=== PATIENT | female | born 2000 | race Caucasian/White ===

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

== ENCOUNTER → 2019-02-28 | Outpatient (CLI) | payer MEDICAID | END | disposition home or self-care (01) | LOC: PREOP 05:50 | PROVIDERS: ATTEND Dentist General Practice | DX: Z01.818 Encounter for other preprocedural examination (principal) ==

== ENCOUNTER 2019-06-13 05:38 | Outpatient (CLI) | payer MEDICAID ==
[~2019-06-13] VITALS: Ht 157 cm; Wt 59.0 kg
== END 2019-06-13 12:58 | disposition home or self-care (01) ==
LOC: PREOP 05:38
PROVIDERS: ATTEND Dentist General Practice
DX: Z01.818 Encounter for other preprocedural examination (principal)

== ENCOUNTER 2019-06-20 10:24 | Day surgery (SDC) | payer MEDICAID ==
--- NOTE | 2019-06-13 12:32 | HISTORY AND PHYSICAL ---
DATE OF SERVICE: CHIEF COMPLAINT: To have teeth surgery by Dr. Do. ALLERGIC TO MEDICATIONS: Denies. MEDICATIONS NOW ON: Denies. PAST SURGICAL HISTORY: Denies. FAMILY HISTORY: Denies asthma, TB, diabetes; grandpa colon cancer and family has hypertension. REVIEW OF SYSTEMS: HEAD: Denies headache, dizziness, fainting. EYES, EARS, NOSE AND THROAT: Denies diplopia, tinnitus, sore throat. CARDIOVASCULAR: Denies heart murmur, chest pain, shortness of breath. LUNGS: Denies asthma, TB, coughing, congestion, wheezing. GASTROINTESTINAL: Appetite okay. Denies blood in stools, diarrhea or constipation. GENITOURINARY: Denies blood, pain or frequency. Last menstrual period, thinks a week ago. PHYSICAL EXAMINATION: GENERAL: The patient is a white female, well nourished, well developed, in no acute respiratory distress at rest. EARS: Noninflamed. EYES: No conjunctivitis or icterus. THROAT: Noninflamed. NECK: Thyroid not enlarged. No abnormal cervical lymphadenopathy noted. HEART: Regular rate and rhythm. LUNGS: Clear to auscultation. ABDOMEN: Soft. Liver and spleen nonpalpable. ASSESSMENT AND PLAN: The patient is okay to have surgery. Job ID: [id number] DocumentID: [id number] Dictated Date: 06/13/2019 11:16:43 Community Service Aide Date: 06/13/2019 11:21:33 Dictated By: NATASHA WATSON DO
[2019-06-20] VITALS (8 sets, daily range): BP systolic 103–111; BP diastolic 61–75
[~2019-06-20] VITALS: Ht 157 cm; Wt 59.0 kg
[2019-06-20] MEDS: LACTATED RINGERS 1,000 ML IV PRN ×2 (11:39→15:10)
[2019-06-20] MEDS ORDERED: ONDANSETRON 4 MG/2 ML (SDV) Z0FRAN ONE (12:15)
[2019-06-20] MEDS ORDERED: SEVOFLURANE (ULTANE) 15 ML INHAL SOLN ONE ×2 (12:15→14:34)
[2019-06-20] MEDS ORDERED: MIDAZOLAM 2 MG/2 ML (VERSED) VIAL ONE (12:15)
[2019-06-20] MEDS ORDERED: ROCURONIUM 10 MG/ML 5 ML SYRINGE IV ONE (12:15)
[2019-06-20] MEDS ORDERED: GLYCOPYRROLATE 0.2 MG/ML (ROBINUL) 2 ML VIAL ONE (12:15)
[2019-06-20] MEDS ORDERED: NEOSTIGMINE 3 MG/3 ML VIAL ONE (12:15)
[2019-06-20] MEDS ORDERED: proPOfol 200 MG/20 ML (DIPRIVAN) VIAL IV ONE (12:15)
[2019-06-20] MEDS ORDERED: DEXAMETHASONE 10 MG/ML (DECADRON) 1 ML VIAL ONE (12:15)
[2019-06-20] MEDS ORDERED: LIDOCAINE PF 2% 5 ML (XYLOCAINE) VIAL ONE (12:15)
[2019-06-20] MEDS ORDERED: fentaNYL INJECTION 100 MCG/2 ML AMP ONE (12:15)
[2019-06-20] MEDS ORDERED: PHENYLEPHRINE 0.25% NASAL SPR (NEO-SYNEPHRINE) 15 ML NS ONE ×2 (12:36→12:45)
[2019-06-20] MEDS ORDERED: morphine INJ 10 MG/ML 1ML (SYR OR VIAL) IVP ONE (15:00)
[2019-06-20] MEDS ORDERED: ONDANSETRON 4 MG/2 ML (SDV) Z0FRAN IVP PRN (15:00)
[2019-06-20] MEDS ORDERED: MEPERIDINE (DEMEROL) INJ 50 MG/ML IVP ONE (15:00)
--- NOTE | 2019-06-20 15:10 | Anesthesia-General Post-Op ---
General Patient Condition Mental Status/LOC: Same as Preop Cardiovascular: Satisfactory Nausea/Vomiting: Absent Respiratory: Satisfactory Pain: Controlled Complications: Absent Post Op Complications Complications None Follow Up Care/Instructions Patient Instructions None needed. Anesthesia/Patient Condition Patient Condition Patient is doing well, no complaints, stable vital signs, no apparent adverse anesthesia problems. No complications reported per nursing. DAVID ALICEA CRNA Jun 20, 2019 15:10
--- NOTE | 2019-06-20 15:15 | NUR ---
TO AMB SURG FROM PAR PER CART. DROWSY, BLOODY NASAL DRAINAGE FROM LEFT NARES. NO BLEEDING FROM MOUTH. AWAKENS ON ARRIVAL TO ROOM AND BEGINS FLAILING IN BED. PADDED RAILS UP X2. RE-ORIENTED PT TO PLACE AND SITUATION. FAMILY MEMBER AT BEDSIDE. QUIETS SOME, BUT BEGINS COUGHING AND COUGHS UP SMALL AMOUNT OF DARK BLOOD AND THEN SMALL EMESIS OF BROWN LIQUID. HAS BEEN INCONTINENT OF URINE TO BED. LINENS AND GOWN CHANGED. PT CALMER NOW.
--- NOTE | 2019-06-20 15:45 | NUR ---
OCCASIONALLY DROWSY. NO FURTHER EMESIS. NO BLEEDING FROM MOUTH OR NOSE.
--- NOTE | 2019-06-20 16:15 | NUR ---
PT AND FAMILY REQUESTING DISMISSAL. NO CHANGE IN ASSESSMENTS. TAKING SMALL AMOUNTS OF PO FLUIDS.
--- NOTE | 2019-06-21 19:16 | OPERATIVE REPORT ---
DATE OF SERVICE: 06/20/2019 PREOPERATIVE DIAGNOSIS: Dental caries. POSTOPERATIVE DIAGNOSIS: Dental caries. OPERATION PERFORMED: Repair of numerous carious teeth utilizing endodontic therapy and composite resin placement. DESCRIPTION OF PROCEDURE: The patient was treated on an outpatient basis and following suitable premedication, taken to the operating room and placed in the supine position upon the table. Anesthesia was induced and nasotracheal intubation accomplished and general anesthesia administered. A throat pack consisting of one wet 4 x 4 gauze sponge was placed in the oropharynx and maintained in place throughout the procedure. Mouth opening was maintained at all times with simple digital pressure. No mechanical retractors of any kind were utilized. Caries was removed from teeth numbers 5 through 12, 21, 23 through 29. Root canal was performed on tooth #25 and a post-cemented in place with pins as well utilizing TheraCem cement. Composite resin was then used to build the tooth over this remains of stump root. The patient tolerated this brief procedure quite nicely and following a thorough debridement of the oral cavity with a copious flow of water, adequate suction and compressed air, the throat pack was removed. The patient was extubated and taken to recovery in quite satisfactory condition. Job ID: [id number] DocumentID: [id number] Dictated Date: 06/21/2019 09:00:43 Commercial Producer Date: 06/21/2019 13:26:48 Dictated By: LANCE CHANG DDS
== END 2019-06-20 16:28 | disposition home or self-care (01) ==
LOC: SDC 10:24
PROVIDERS: ATTEND Dentist General Practice
DX: K02.9 Dental caries, unspecified (principal); Z90.89 Acquired absence of other organs
CPT/HCPCS: 84703; 87081

== ENCOUNTER 2020-09-06 05:38 | Outpatient (RCR) | payer MEDICAID | END 2020-09-12 09:01 | disposition home or self-care (01) | LOC: PREOP 05:38 → EDSTATUS 13:00 → PREOP 09-12 09:01 | PROVIDERS: ATTEND Dentist General Practice | DX: Z01.818 Encounter for other preprocedural examination (principal) ==

== ENCOUNTER 2020-09-13 10:30 | Day surgery (SDC) | payer MEDICAID ==
--- NOTE | 2020-09-05 11:28 | HISTORY AND PHYSICAL ---
DATE OF SERVICE: DATE OF ADMISSION: . CHIEF COMPLAINT: To have outpatient surgery by Dr. Do, history by patient and family. ALLERGIC TO MEDICATIONS: Denies. PAST SURGICAL HISTORY: Teeth. CURRENT MEDICATIONS: Denies. FAMILY HISTORY: Denies asthma, TB, diabetes, heart disease, lung disease, and cancer. REVIEW OF SYSTEMS: HEAD: Denies headache, dizziness, fainting. EYES, EARS, NOSE AND THROAT: Denies diplopia, tinnitus, sore throat. HEART: Denies heart murmur, chest pain, shortness of breath. LUNGS: Denies asthma, TB, coughing, congestion, and smoking. GASTROINTESTINAL: Appetite good. Denies blood in stools, diarrhea, constipation, nausea, vomiting. GENITOURINARY: Denies blood, pain or frequency. Last menstrual period was August 10, 2020. PHYSICAL EXAMINATION: GENERAL: The patient is a white female, well nourished, well developed, in no acute respiratory distress at rest. EARS: No discharge noted. EYES: No conjunctivitis or icterus. THROAT: Noninflamed. NECK: Thyroid not enlarged. No abnormal cervical lymphadenopathy noted. HEART: Regular rate and rhythm. LUNGS: Clear to auscultation. ABDOMEN: Soft. Liver and spleen nonpalpable. ASSESSMENT AND PLAN: The patient is okay to have surgery. Job ID: [id number] DocumentID: [id number] Dictated Date: 09/05/2020 11:15:42 Chemical Research Worker Date: 09/05/2020 11:27:27 Dictated By: NATASHA WATSON DO
[2020-09-13] VITALS (8 sets, daily range): BP systolic 98–117; BP diastolic 59–73
[~2020-09-13] VITALS: Ht 162.6 cm; Wt 68.0 kg
[2020-09-13] MEDS ORDERED: LACTATED RINGERS 1,000 ML IV PRN (10:45)
[2020-09-13] MEDS ORDERED: PHENYLEPHRINE 0.25% NASAL SPR (NEO-SYNEPHRINE) 15 ML NS ONE (10:45)
[2020-09-13] MEDS ORDERED: fentaNYL INJ 100 MCG/2 ML AMP ONE (11:41)
[2020-09-13] MEDS ORDERED: MIDAZOLAM 2 MG/2 ML (VERSED) VIAL ONE (11:45)
[2020-09-13] MEDS ORDERED: LIDOCAINE PF 2% 5 ML (XYLOCAINE) VIAL ONE (11:50)
[2020-09-13] MEDS ORDERED: proPOfol 200 MG/20 ML (DIPRIVAN) VIAL IV ONE (11:50)
[2020-09-13] MEDS ORDERED: ROCURONIUM 10 MG/ML 5 ML SYRINGE IV ONE (11:50)
[2020-09-13] MEDS ORDERED: SEVOFLURANE (ULTANE) 15 ML INHAL SOLN ONE (14:37)
[2020-09-13] MEDS ORDERED: ONDANSETRON 4 MG/2 ML (SDV) Z0FRAN ONE ×2 (14:40→16:00)
[2020-09-13] MEDS ORDERED: ONDANSETRON 4 MG/2 ML (SDV) Z0FRAN IVP ONE (16:45)
--- NOTE | 2020-09-16 12:44 | OPERATIVE REPORT ---
DATE OF SERVICE: 09/13/2020 PREOPERATIVE DIAGNOSIS: Dental caries. POSTOPERATIVE DIAGNOSIS: Dental caries. OPERATION PERFORMED: Repair of numerous carious teeth utilizing stainless steel crowns, composite resin and root canal therapy. DESCRIPTION OF PROCEDURE: The patient was treated on an outpatient basis and following suitable premedication, was taken to the operating room and placed in the supine position upon the table. Anesthesia was induced. Nasotracheal intubation accomplished and general anesthesia was administered. A throat pack consisting of one wet 4 x 4 gauze sponge was placed in the oropharynx and remained in place throughout the procedure. Mouth opening was maintained at all times with simple digital pressure. No mechanical retractors of any kind were utilized. Caries was removed from teeth numbers 3, 5, 21, 6 through 11, 27 and 29 and #5. Stainless steel crowns were then applied to teeth numbers 3, 5 and 21. Composite resin was utilized to repair teeth #6 through 11, 27 and 29. Root canal was performed on tooth #5. The patient tolerated this procedure quite nicely and following a thorough debridement of the oral cavity with a copious flow of water, adequate suction and compressed air, throat pack was removed. The patient was extubated and taken to recovery in quite satisfactory condition. Job ID: [id number] DocumentID: [id number] Dictated Date: 09/16/2020 07:41:17 Director Airport Date: 09/16/2020 12:43:23 Dictated By: EDINSON WORTHINGTON
== END 2020-09-13 16:30 | disposition home or self-care (01) ==
LOC: SDC 10:30
PROVIDERS: ATTEND Dentist General Practice
DX: K02.9 Dental caries, unspecified (principal)
CPT/HCPCS: 84703; 87081; 87636

== ENCOUNTER 2021-09-23 05:29 | Outpatient (CLI) | payer MEDICARE, MEDICAID ==
[~2021-09-23] VITALS: Ht 160 cm; Wt 68.0 kg
== END 2021-09-23 14:49 | disposition home or self-care (01) ==
LOC: PREOP 05:29
PROVIDERS: ATTEND Dentist General Practice
DX: Z01.818 Encounter for other preprocedural examination (principal)

== ENCOUNTER 2021-09-30 10:40 | Day surgery (SDC) | payer MEDICARE, MEDICAID ==
--- NOTE | 2021-09-23 10:44 | HISTORY AND PHYSICAL ---
DATE OF SERVICE: CHIEF COMPLAINT: To have teeth surgery by Dr. Do. FAMILY HISTORY: Denies asthma, TB, diabetes, heart disease, lung disease. The patient is adopted and does not know the history. REVIEW OF SYSTEMS: HEAD: Denies headache, dizziness, fainting. EYES, EARS, NOSE AND THROAT: Denies diplopia, tinnitus, sore throat. CARDIOVASCULAR: Denies heart murmur, chest pain, shortness of breath. LUNGS: Denies asthma, TB, coughing, congestion, wheezing. GASTROINTESTINAL: Appetite good. Denies blood in stools, diarrhea, constipation, ulcer or vomiting. GENITOURINARY: Denies blood, pain or frequency. Last menstrual period finished a couple of days ago. PHYSICAL EXAMINATION: GENERAL: The patient is a white female, well nourished, well developed, in no acute respiratory distress at rest. VITAL SIGNS: Weight 147, blood pressure 98/74, pulse 60. EYES, EARS, NOSE AND THROAT: Ears, no discharge. Eyes, no conjunctivitis or icterus. Throat, noninflamed. NECK: Thyroid not enlarged. No abnormal cervical lymphadenopathy noted. HEART: Regular rate and rhythm. LUNGS: Clear to auscultation. ABDOMEN: Soft. Liver and spleen nonpalpable. No pain to palpation. ASSESSMENT AND PLAN: The patient is okay to have surgery. Job ID: [id number] DocumentID: [id number] Dictated Date: 09/23/2021 10:16:39 Mail Carrier Date: 09/23/2021 10:30:03 Dictated By: NATASHA WATSON DO
[~2021-09-30] VITALS: Ht 160 cm; Wt 68.0 kg
[2021-09-30] VITALS (7 sets, daily range): BP systolic 104–144; BP diastolic 46–94
[2021-09-30] MEDS ORDERED: MIDAZOLAM 2 MG/2 ML (VERSED) VIAL ONE (11:21)
[2021-09-30] MEDS ORDERED: GLYCOPYRROLATE 0.2 MG/ML (ROBINUL) 2 ML VIAL ONE (11:21)
[2021-09-30] MEDS ORDERED: LIDOCAINE PF 2% 5 ML (XYLOCAINE) VIAL ONE (11:21)
[2021-09-30] MEDS ORDERED: ROCURONIUM 50 MG/5 ML (ZEMURON) VIAL IV ONE (11:21)
[2021-09-30] MEDS ORDERED: ONDANSETRON 4 MG/2 ML (SDV) Z0FRAN ONE ×2 (11:21→15:22)
[2021-09-30] MEDS ORDERED: fentaNYL INJ 100 MCG/2 ML AMP ONE (11:21)
[2021-09-30] MEDS ORDERED: NEOSTIGMINE 3 MG/3 ML VIAL ONE (11:21)
[2021-09-30] MEDS ORDERED: proPOfol 200 MG/20 ML (DIPRIVAN) VIAL IV ONE (11:21)
[2021-09-30] MEDS: LACTATED RINGERS 1,000 ML IV PRN ×2 (11:38→14:08)
[2021-09-30] MEDS ORDERED: PHENYLEPHRINE 0.25% NASAL SPR (NEO-SYNEPHRINE) 15 ML NS ONE (12:06)
[2021-09-30] MEDS ORDERED: morphine INJ 10 MG/ML 1ML (SYR OR VIAL) IVP ONE (14:30)
[2021-09-30] MEDS ORDERED: ONDANSETRON 4 MG/2 ML (SDV) Z0FRAN IVP PRN (14:30)
--- NOTE | 2021-09-30 14:46 | Anesthesia-General Post-Op ---
General Patient Condition Mental Status/LOC: Same as Preop Cardiovascular: Satisfactory Nausea/Vomiting: Absent Respiratory: Satisfactory Pain: Controlled Complications: Absent Post Op Complications Complications None Follow Up Care/Instructions Patient Instructions None needed. Anesthesia/Patient Condition Patient Condition Patient is doing well in PACU and ready for return to [facility], no complaints, stable vital signs, no apparent adverse anesthesia problems. ANNE-MARIE GIORDANO DO Sep 30, 2021 14:46
[2021-09-30] MEDS ORDERED: SEVOFLURANE (ULTANE) 15 ML INHAL SOLN ONE (14:56)
[2021-09-30] MEDS ORDERED: ONDANSETRON 4 MG/2 ML (SDV) Z0FRAN IVP ONE (15:30)
--- NOTE | 2021-10-01 13:54 | OPERATIVE REPORT ---
DATE OF SERVICE: 09/30/2021 PREOPERATIVE DIAGNOSIS: Dental caries. POSTOPERATIVE DIAGNOSIS: Dental caries. OPERATION PERFORMED: Repair of numerous carious teeth utilizing composite resin endodontic therapy and stainless steel crown application. DESCRIPTION OF PROCEDURE: The patient was treated on an outpatient basis and following suitable premedication, taken to the operating room and placed in the supine position upon the table. Anesthesia was induced, nasotrachael intubation accomplished and general anesthesia was administered. A throat pack consisting of one wet 4 x 4 gauze sponge was placed in the oropharynx and maintained in place throughout the procedure. Mouth opening was maintained at all times with simple digital pressure. No mechanical retractors of any kind were utilized. Caries was removed from teeth #7, 23 through 26 and all subsequently repaired with composite resin. Root canal therapy was performed on teeth numbers 23, 28 and 29 and 28 and 29 were coered with stainless steel crowns. . The patient tolerated this procedure quite well and following a thorough debridement of the oral cavity with a copius flow of water, adequate suction and compressed aiir, the throat pack was removed, the patient was extubated and taken to recovery in quite satisfactory condition. Job ID: [id number] DocumentID: [id number] Dictated Date: 10/01/2021 07:16:37 Cloth Bleaching Range Back Tender Date: 10/01/2021 13:54:27 Dictated By: EDINSON WORTHINGTON
== END 2021-09-30 15:50 | disposition home or self-care (01) ==
LOC: SDC 10:40
PROVIDERS: ATTEND Dentist General Practice
DX: K02.9 Dental caries, unspecified (principal)
CPT/HCPCS: 84703; 87081

== ENCOUNTER 2022-09-29 05:27 | Outpatient (CLI) | payer MEDICARE, MEDICAID ==
[~2022-09-29] VITALS: Ht 157.5 cm; Wt 59.1 kg
== END 2022-09-30 10:50 | disposition home or self-care (01) ==
LOC: PREOP 05:27
PROVIDERS: ATTEND Dentist General Practice
DX: Z01.818 Encounter for other preprocedural examination (principal)

== ENCOUNTER 2022-10-06 10:53 | Day surgery (SDC) | payer MEDICARE, MEDICAID ==
--- NOTE | 2022-09-30 11:22 | HISTORY AND PHYSICAL ---
DATE OF SERVICE: 09/30/2021 CHIEF COMPLAINT: History by mother, Dr. Do to do teeth surgery. ALLERGIC TO MEDICATIONS: Denies. MEDICATIONS NOW ON: Denies. SURGERIES: Denies. FAMILY HISTORY: She denies asthma, TB, diabetes, heart disease, lung disease, cancer. REVIEW OF SYSTEMS: HEAD: Denies headaches or dizziness. EYES, EARS, NOSE OR THROAT: Denies diplopia, tinnitus or sore throat. HEART: Denies heart murmur, chest pain, shortness of breath. LUNGS: Denies asthma, TB, coughing, congestion, wheezing. Previous surgery, did have tonsillectomy. GASTROINTESTINAL: Appetite good. Denies blood in stools, diarrhea, or constipation. GENITOURINARY: Denies blood, pain, frequency. Last menstrual period August 27. She is not sexually active. PHYSICAL EXAMINATION: GENERAL: The patient is a white female well-nourished, well-developed, in no acute respiratory distress at rest. VITAL SIGNS: Weight 150, blood pressure 100/70, pulse 72. HEENT: EARS, no discharge. Nose not inflamed. Throat tonsils removed. Neck thyroid not enlarged. No abnormal cervical lymphadenopathy noted. HEART: Regular rate and rhythm. LUNGS: Clear to auscultation. ABDOMEN: Soft. Liver and spleen nonpalpable. The patient is okay to have surgery. Job ID: [id number] DocumentID: [id number] Dictated Date: 09/30/2022 10:58:03 [employer]cery Shopper Date: 09/30/2022 11:19:00 Dictated By: NATASHA WATSON DO
[~2022-10-06] VITALS: Ht 157.5 cm; Wt 59.1 kg
[2022-10-06] VITALS (7 sets, daily range): BP systolic 85–111; BP diastolic 49–85
[2022-10-06] MEDS ORDERED: LACTATED RINGERS 1,000 ML IV PRN (11:45)
[2022-10-06] MEDS ORDERED: ONDANSETRON 4 MG/2 ML (SDV) Z0FRAN ONE (12:24)
[2022-10-06] MEDS ORDERED: proPOfol 200 MG/20 ML (DIPRIVAN) VIAL IV ONE (12:24)
[2022-10-06] MEDS ORDERED: fentaNYL INJ 100 MCG/2 ML AMP ONE (12:24)
[2022-10-06] MEDS ORDERED: MIDAZOLAM 2 MG/2 ML (VERSED) VIAL ONE (12:24)
[2022-10-06] MEDS ORDERED: LIDOCAINE PF 2% 5 ML (XYLOCAINE) VIAL ONE (12:24)
[2022-10-06] MEDS ORDERED: GLYCOPYRROLATE 0.2 MG/ML (ROBINUL) 2 ML VIAL ONE ×2 (12:24→13:58)
[2022-10-06] MEDS ORDERED: PHENYLEPHRINE 0.25% NASAL SPR (NEO-SYNEPHRINE) 15 ML NS ONE (12:33)
[2022-10-06] MEDS ORDERED: PHENYLEPHRINE 100 MCG/ML 10 ML (ANESTHESIA) SYR ONE (13:35)
[2022-10-06] MEDS ORDERED: NEOSTIGMINE (BLOXIVERZ ) 1 MG/1ML 10 ML VIAL ONE (13:58)
[2022-10-06] MEDS ORDERED: ROCURONIUM 50 MG/5 ML (ZEMURON) VIAL IV ONE (13:59)
[2022-10-06] MEDS ORDERED: ONDANSETRON 4 MG/2 ML (SDV) Z0FRAN IVP PRN (14:15)
[2022-10-06] MEDS ORDERED: HYDROmorphone 2 MG/ML VIAL (DILAUDID) IV ONE (14:15)
--- NOTE | 2022-10-06 14:40 | Anesthesia-General Post-Op ---
General Patient Condition Mental Status/LOC: Same as Preop Cardiovascular: Satisfactory Nausea/Vomiting: Absent Respiratory: Satisfactory Pain: Controlled Complications: Absent Post Op Complications Complications None Follow Up Care/Instructions Patient Instructions None needed. Anesthesia/Patient Condition Patient Condition Patient is doing well, no complaints, stable vital signs, no apparent adverse anesthesia problems. No complications reported per nursing. D/C home per [facility] Criteria: Yes DONNIE SERRATO CRNA Oct 06, 2022 14:40
--- NOTE | 2022-10-07 15:24 | OPERATIVE REPORT ---
DATE OF SERVICE: 10/06/2022 PREOPERATIVE DIAGNOSIS: Dental caries. POSTOPERATIVE DIAGNOSIS: Dental caries. OPERATION PERFORMED: Repair of numerous carious teeth utilizing endodontic therapy, composite resin and pins and a post. DESCRIPTION OF PROCEDURE: The patient was treated on an outpatient basis and following suitable premedication, taken to the operating room and placed in the supine position upon the table. Anesthesia was induced. A nasotracheal intubation was accomplished and general anesthesia was administered. A throat pack consisting of 1 wet 4 x 4 gauze sponge was placed in the oropharynx and maintained in place throughout the procedure. Mouth opening was maintained at all times with simple digital pressure. No mechanical retractors of any kind were utilized. Caries was removed from tooth #10 and then the pulp as well. An endodontic therapy performed on that tooth following which Foundation consisting of glass ionomer cement, pins and a post were placed in this tooth. Tooth #6 was then repaired and tooth #9 repaired also with glass ionomer cement after caries had been removed. The patient tolerated the procedure quite nicely and following a thorough debridement of the oral cavity with a copious sterile water, adequate suction and compressed air. The throat pack was removed. The patient was extubated and taken to recovery in quite satisfactory condition. Job ID: [id number] DocumentID: [id number] Dictated Date: 10/07/2022 10:23:07 [employer] Date: 10/07/2022 15:22:00 Dictated By: LANCE CHANG DDS
== END 2022-10-06 15:40 | disposition home or self-care (01) ==
LOC: SDC 10:53
PROVIDERS: ATTEND Dentist General Practice
DX: K02.9 Dental caries, unspecified (principal)
CPT/HCPCS: 84703; 87081